=== PATIENT | female | born 1960 | race Caucasian/White ===

== ENCOUNTER 2019-10-18 12:08 | Emergency (ER) | payer MEDICARE, MEDICAID, SELFPAY ==
[2019-10-18 12:24] VITALS: BP 131/61; PULSE 81; RESP 18; TEMP 37.1; O2SAT 99
--- NOTE | 2019-10-18 12:32 | ED.GENADULT ---
HPI - General Adult General Chief complaint: Upper Respiratory Infection Stated complaint: Sore Throat/Cough Time Seen by Provider: 10/18/19 12:32 Source: patient Mode of arrival: ambulatory History of Present Illness HPI narrative: 58-year-old female patient presents to the [facility] with complaints of a sore throat for the past 2 weeks. Patient states she is also had a little bit of nasal congestion and a slight increase in shortness of breath. Patient does have a history of insulin-dependent diabetes as well as COPD. Patient states she has had strep before in the past. Patient states she has been taking Tylenol for her symptoms. Patient denies any chest pain at this time and denies any fevers that she is aware of. Related Data Home Medications Medication Instructions Recorded Confirmed albuterol sulfate [Ventolin HFA] 2 inh INHALATION DIRECTED 10/18/19 10/18/19 insulin aspart U-100 [Novolog 60 unit CONTINUOUS SUBCUTANEOUS 10/18/19 10/18/19 U-100 Insulin aspart] INFUSION DAILY rosuvastatin 20 mg PO DAILY 10/18/19 10/18/19 Allergies Allergy/AdvReac Type Severity Reaction Status Date / Time No Known Allergies Allergy Verified 10/18/19 12:29 Review of Systems Review of Systems: Narrative: CONSTITUTIONAL: Denies fever, chills, or sweats. EYES: Denies visual changes, redness, or discharge. ENT: Denies rhinorrhea, positive congestion, positive sore throat, denies otalgia. CARDIOVASCULAR: Denies chest pain, palpitations, or edema. RESPIRATORY: Denies cough, positive slight increase in dyspnea. GASTROINTESTINAL: Denies abdominal pain, nausea, vomiting, or diarrhea. GENITOURINARY: Denies dysuria or hematuria. SKIN: Denies rash or itching. MUSCULOSKELETAL: Denies back pain, joint pain, or myalgia. NEUROLOGIC: Denies headache, numbness, or weakness. PSYCHIATRIC: Denies anxiety or depression. [facility] Past Medical History Medical History (Updated 10/18/19 @ 12:53 by NIMA aMyes) COPD (chronic obstructive pulmonary disease) Insulin dependent diabetes mellitus Comments At the time of my signature I agree with nursing past medical history, surgical, social, and family history. There is no relevant family history pertinent to the presenting complaint. Exam Narrative: Exam Narrative: GENERAL: Well-appearing, well-nourished, and in no acute distress. HEAD: Normocephalic, atraumatic. EYES: PERRLA and EOMI. ENT: Nares clear, no rhinorrhea or epistaxis. Mucous membranes moist.Posterior pharynx with some erythema and 1+ tonsil enlargement, no exudates or lesions present. Bilateral TMs have a little bit of fluid behind them but no erythema or foreign bodies in the canal. NECK: Supple. No lymphadenopathy CHEST: Clear to auscultation. No respiratory distress.Patient able to talk in clear complete sentences. No tripoding noted. No active labored breathing noted. HEART: Regular rate and rhythm. No murmur heard. Normal peripheral pulses. ABDOMEN: Soft, nontender, nondistended, normal active bowel sounds. EXTREMITIES: Normal range of motion. No edema. SKIN: Warm, dry, no rash. NEURO: No focal deficits. Alert and oriented x3. Course Vital Signs Vital signs: Vital Signs Temperature 37.1 C 10/18/19 12:24 Pulse Rate 81 10/18/19 12:24 Respiratory Rate 18 10/18/19 12:24 Blood Pressure 131/61 10/18/19 12:24 Pulse Oximetry 99 10/18/19 12:24 Temperature 37.1 C 10/18/19 12:24 Pulse Rate 81 10/18/19 12:24 Respiratory Rate 18 10/18/19 12:24 Blood Pressure 131/61 10/18/19 12:24 Pulse Oximetry 99 10/18/19 12:24 Vital signs reviewed Medical Decision Making Differential Diagnosis Differential Diagnosis: Differential diagnosis: Viral pharyngitis, pharyngitis, group A strep, infectious mononucleosis, gonococcal pharyngitis, exudative pharyngitis, oral candidiasis. Chronic allergies, postnasal drip, GERD, abscess formation, but glottitis, retropharyngeal abscess formation, or airway obstructi
== END 2019-10-18 12:55 | disposition home or self-care (01) ==
PROVIDERS: Emergency Provider Nurse Practitioner Family; PCP Family Medicine
DX: J02.0 Streptococcal pharyngitis (principal); Z20.828 Contact with and (suspected) exposure to other viral communicable diseases; R06.02 Shortness of breath; R05 Cough; J44.9 Chronic obstructive pulmonary disease, unspecified; E11.9 Type 2 diabetes mellitus without complications
CPT/HCPCS: 87635; 87880; 99213; C9803; G0463; U0003